=== PATIENT | male | born 2000 | race Hispanic/Latino ===

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

== ENCOUNTER 2018-11-05 12:20 | Emergency (ER) | payer OTHER, SELFPAY | END 2018-11-05 13:32 | disposition home or self-care (01) | LOC: NAV ERS 12:20 | DX: K52.9 Noninfective gastroenteritis and colitis, unspecified (principal); J45.909 Unspecified asthma, uncomplicated | CPT/HCPCS: 99283 ==

== ENCOUNTER 2021-05-27 22:58 | Emergency (ER) | payer BC, SELFPAY ==
[2021-05-27 23:45] LABS: #Basophils 0.1 thou/uL (0.0-0.2); #Eosinphils 1.6 thou/uL (0.0-0.7); #Lymphocytes 3.3 thou/uL (1.20-3.40); #Monocytes 1.1 thou/uL (0.11-0.59); #Neutrophils 3.5 thou/uL (1.40-6.50); %Basophils 1.5 % (0.0-1.0); %Eosinophils 16.3 % (0.0-10.0); %Lymphocytes 34.4 % (21.0-51.0); %Monocytes 11.2 % (0.0-10.0); %Neutrophils 36.6 % (42.0-75.0); Hemoglobin 16.8 g/dL (14.0-18.0); Mean Corpuscular HGB CONC 33.1 g/dL (32.0-36.0); Mean Corpuscular Volume 90.5 fL (78.0-98.0); Mean Platelet Volume 8.9 fL (7.4-10.4); Platelet Count 239 thou/uL (130-400); RBC Distribution Width 11.5 % (11.5-14.5); White Blood Cell (WBC) Count 9.7 thou/uL (4.8-10.8)
[2021-05-27 23:59] LABS: Bicarbonate (HCO3v) 31.2 mmol/L (22.0-28.0); CO2 Tension (PvCO2) 60.1 mmHg (42.0-51.0); Calcium, Ionized 1.25 mmol/L (1.15-1.33); Chloride 106 mmol/L (98-107); Hemoglobin - Calc 16.8 g/dL (14.0-18.0); Potassium 4.5 mmol/L (3.5-5.1); Sodium 144 mmol/L (138-145); vO2 Saturation-calc 47.4 % (60.0-85.0)
[2021-05-28 00:03] LABS: ALT (SGPT) 23 U/L (8-55); AST (SGOT) 22 U/L (5-34); Albumin 4.4 g/dL (3.5-5.0); Alkaline Phosphatase 79 U/L (40-110); Anion Gap 16 mmol/L (10-20); BUN (Urea Nitrogen) 16 mg/dL (8.9-20.6); Bilirubin, Total 0.3 mg/dL (0.2-1.2); Calc. Creatinine Clearance 0 mL/min (70-130); Calcium 9.8 mg/dL (7.8-10.44); Carbon Dioxide 27 mmol/L (22-29); Chloride 103 mmol/L (98-107); Globulin 3.6 g/dL (2.4-3.5); Glucose 97 mg/dL (70-105); Potassium 4.5 mmol/L (3.5-5.1); Sodium 141 mmol/L (136-145)
[2021-05-28] MEDS ORDERED: methylPREDNISolone Sod Succ/PF 125 MG/2 ML VIAL ONE (00:16)
[2021-05-28] MEDS ORDERED: Albuterol Sulfate 2.5 mg/3 ml Neb ONE (00:33)
== END 2021-05-28 01:00 | disposition home or self-care (01) ==
LOC: NAV ERS 22:58
DX: J45.909 Unspecified asthma, uncomplicated (principal)
CPT/HCPCS: 36415; 71045; 80053; 82330; 82435; 82803; 84132; 84295; 85025; 85379; 93005; 94640; 94760; 96374; J2930; J7611; J7620